=== PATIENT | male | born 1955 ===

== ENCOUNTER 2020-09-02 13:46 | Outpatient (CLI) | payer MEDICAID ==
[~2020-09-02] VITALS: Ht 195.6 cm; Wt 109.3 kg
[2020-09-02 14:23] VITALS: BP 137/83
--- NOTE | 2020-09-02 17:14 | Consultation ---
DATE OF CONSULTATION: 09/02/2020 REASON FOR CONSULTATION: Referral for stool OB positive. No prior history of endoscopy and colonoscopy. PAST MEDICAL HISTORY: 1. 2. GERD. 3. Depression. PAST SURGICAL HISTORY: None. MEDICATIONS: Atorvastatin. FAMILY HISTORY: Noncontributory. SOCIAL HISTORY: The patient denies any tobacco, alcohol, or drug abuse. ALLERGIES: No known drug allergies. REVIEW OF SYSTEMS: Positive for GERD. PHYSICAL EXAMINATION: VITAL SIGNS: Temperature 97.9, blood pressure 137/80, pulse 80, respirations 20. HEENT: Normocephalic and atraumatic. Sclerae anicteric. NECK: Supple. No evidence of obvious lymphadenopathy. CARDIOVASCULAR: Regular rate and rhythm. Plus S1, S2. LUNGS: Clear to auscultation bilaterally. ABDOMEN: Positive bowel sounds. Soft and nontender. No rebound. No guarding. No peritoneal sign. EXTREMITIES: No cyanosis, no clubbing, no edema. ASSESSMENT AND PLAN: This is a 65-year-old male with stool OB positive. No prior history of endoscopy and colonoscopy, needs both. The patient was given instruction for colonoscopy and endoscopy, We will schedule him when authorization is obtained. Bill Pascual M.D. DR: Mari JOB#: [id number] CC:
== END 2020-09-02 14:56 | disposition home or self-care (01) ==
LOC: PAN 13:46
DX: K92.1 Melena (principal); K21.9 Gastro-esophageal reflux disease without esophagitis; F32.9 Major depressive disorder, single episode, unspecified